=== PATIENT | female | born 1975 | race Caucasian/White ===

== ENCOUNTER 2025-05-17 06:27 | Day surgery (SDC) | payer OTHER ==
[~2025-05-17] VITALS: Ht 141 cm; Wt 78.6 kg
[~2025-05-17 06:27] MED LIST: SODIUM CHLORIDE 0.9% 1,000 ML IV ONE
[2025-05-17] MEDS ORDERED: ALBU18HF12 IH (07:04)
[2025-05-17] MEDS ORDERED: PRED-729 PO (07:04)
[2025-05-17] MEDS ORDERED: MONT-40 PO (07:04)
[2025-05-17] MEDS ORDERED: FAMO40TA7 PO (07:04)
[2025-05-17] MEDS ORDERED: CEFU250T87 PO (07:04)
[2025-05-17] MEDS: SODIUM CHLORIDE 0.9% 1,000 ML IV ONE (07:16)
[2025-05-17] MEDS ORDERED: FentaNYL CITRATE PF 100 MCG/2 ML VIAL ONE (07:34)
[2025-05-17] MEDS ORDERED: MIDAZOLAM HCL 2 MG/2 ML VIAL ONE (07:35)
[2025-05-17 09:20] VITALS: PULSE 77; RESP 18; O2SAT 93
[2025-05-17] MEDS ORDERED: ALBUTEROL SULFATE 2.5 MG/0.5 ML NEB SOLUTION NEB ONE (12:00)
[2025-05-17] MEDS ORDERED: LIDOCAINE 4% 50 ML SOLUTION ONE (12:00)
[2025-05-17] MEDS ORDERED: BENZOCAINE 20% 50 MCG/SPRAY 57 GM ONE (12:00)
[2025-05-17] MEDS ORDERED: LIDOCAINE 2% 11 ML JELLY ONE (12:00)
== END 2025-05-17 13:15 | disposition home or self-care (01) ==
LOC: SURGERY 06:27
PROVIDERS: ATTEND Internal Medicine Critical Care Medicine
DX: R05.3 Chronic cough (principal); J38.4 Edema of larynx; B37.0 Candidal stomatitis; J47.9 Bronchiectasis, uncomplicated; Z79.899 Other long term (current) drug therapy
CPT/HCPCS: 31623; 87206; 87101; 87220; 87070; 88108; 31624; 94760; 71045; 87015; J3010; J2250; J2919; J7613; Z7610